=== PATIENT | female | born 1980 | race Caucasian/White ===

== ENCOUNTER 2017-03-04 07:01 | Emergency (ER) | payer OTHER ==
[~2017-03-04] VITALS: Ht 170.2 cm; Wt 104.5 kg
[2017-03-04 07:18] LABS: GLUCOSE,POINT OF CARE 92 MG/DL (70-110)
[2017-03-04] MEDS ORDERED: METF500T4 PO (07:51)
[2017-03-04] MEDS ORDERED: ATOR20TA86 PO (07:51)
[2017-03-04] MEDS ORDERED: 0.9% SODIUM CHLORIDE 5 ML NEB SOLUTION NEB ONE (08:32)
[2017-03-04] MEDS: IPRATROPIUM BROMIDE 0.5 MG/2.5 ML NEB SOLUTION NEB ONE (08:35)
[2017-03-04] MEDS: ALBUTEROL SULFATE 2.5 MG/0.5 ML NEB SOLUTION NEB ONE (08:35)
[2017-03-04 08:54] VITALS: BP 129/74
== END 2017-03-04 09:55 | disposition home or self-care (01) ==
LOC: EMS 07:03
DX: J40 Bronchitis, not specified as acute or chronic (principal); E11.9 Type 2 diabetes mellitus without complications; E78.00 Pure hypercholesterolemia, unspecified
CPT/HCPCS: 71010; 82962; 94640; 99283; J7613

== ENCOUNTER 2017-06-01 21:57 | Emergency (ER) | payer OTHER ==
[~2017-06-01] VITALS: Ht 170.2 cm; Wt 95.5 kg
[~2017-06-01 21:57] MED LIST: ATOR20TA86 PO; METF500T4 PO
[2017-06-01 22:12] LABS: GLUCOSE,POINT OF CARE 122 MG/DL (70-110)
[2017-06-01] MEDS ORDERED: PHEN37.599 PO (22:19)
[2017-06-01] MEDS ORDERED: DiphenhydrAMINE HCL 50 MG CAPSULE PO ONE (23:30)
[2017-06-01 23:38] VITALS: BP 128/68
== END 2017-06-01 23:46 | disposition home or self-care (01) ==
LOC: EMS 21:59
DX: S80.862A Insect bite (nonvenomous), left lower leg, initial encounter (principal); E11.9 Type 2 diabetes mellitus without complications; E78.00 Pure hypercholesterolemia, unspecified; Z79.899 Other long term (current) drug therapy; W57.XXXA Bitten or stung by nonvenomous insect and other nonvenomous arthropods, initial encounter; Y93.9 Activity, unspecified; Y92.9 Unspecified place or not applicable; Y99.9 Unspecified external cause status
CPT/HCPCS: 82962; 99282